=== PATIENT | female | born 1990 | race Hispanic/Latino ===

== ENCOUNTER 2018-07-18 10:35 | Emergency (ER) | payer SELFPAY ==
[2018-07-18 11:13] LABS: Basophils # (Auto) 0.1 K/mm3 (0.0-0.1); Basophils % (Auto) 0.6 % (0.0-1.8); Eosinophils # (Auto) 0.1 K/mm3 (0.0-0.4); Eosinophils % (Auto) 1.4 % (0.0-4.3); Hematocrit 48.6 % (30.3-42.9); Hemoglobin 16.7 gm/dl (10.1-14.3); Lymphocytes # (Auto) 1.6 K/mm3 (1.2-5.4); Lymphocytes % (Auto) 18.9 % (13.4-35.0); Mean Corpuscular HGB Conc 35 % (30-34); Mean Corpuscular Volume 94 fl (79-97); Monocytes # (Auto) 0.6 K/mm3 (0.0-0.8); Monocytes % (Auto) 6.6 % (0.0-7.3); Platelet Count 262 K/mm3 (140-440); Red Blood Count 5.17 M/mm3 (3.65-5.03); Red Cell Distribution Width 11.8 % (13.2-15.2)
[2018-07-18 11:33] LABS: BUN/Creatinine Ratio 15; Blood Urea Nitrogen 9 mg/dL (7-17); Calcium 10.7 mg/dL (8.4-10.2); Hemolysis Index 25
[2018-07-18] MEDS ORDERED: CATAPRES PO ONE (12:06)
[2018-07-18] MEDS ORDERED: ZOFRAN IV ONE (12:06)
[2018-07-18] MEDS ORDERED: BENTYL IM ONE (12:06)
[2018-07-18] MEDS ORDERED: PEPCID IV ONE (12:06)
--- NOTE | 2018-07-18 12:08 | Emergency Department Report ---
"ED General Adult HPI - General Chief complaint: Abdominal Pain Stated complaint: WITHDRAWS Time Seen by Provider: 07/18/18 11:55 Source: patient, RN notes reviewed Mode of arrival: Ambulatory Limitations: No Limitations - History of Present Illness Initial comments: This is a 28-year-old female. The patient is not known to this provider previously. She has a history of narcotic abuse. She reports snorting heroin on a daily basis. The patient presents to the emergency room with a complaint of narcotic withdrawal. She used heroin recreationally this morning, and then, simultaneously, took one of her friend's Suboxone tablets, 8 mg, at approxima tely 7:15 in the morning. Approximately 45 minutes to one hour later, patient developed abdominal cramping, nausea, vomiting, malaise, fatigue. She denies headache, neck pain, chest pain, positive abdominal pain, no urinary symptoms, not homicidal, not suicidal. Denies other coingestions. She is not having hallucinations. She is interested in detox therapy. -: Sudden Location: abdomen Radiation: non-radiation Quality: aching Consistency: constant Improves with: medication, rest Worsens with: movement - Related Data Previous Rx's Medication Instructions Recorded Last Taken Type Dicyclomine [Bentyl] 10 mg PO QID PRN #20 capsule 07/18/18 Unknown Rx Naloxone HCl [Narcan Nasal [place]] 4 mg NS Q1HR PRN #10 spray 07/18/18 Unknown Rx Ondansetron [Zofran Odt] 4 mg PO Q8HR PRN #20 tab.rapdis 07/18/18 Unknown Rx Promethazine [Phenergan SUPPOS] 50 mg [place] Q6H PRN #15 supp.rect 07/18/18 Unknown Rx cloNIDine [Catapres] 0.1 mg PO BID PRN #20 tablet 07/18/18 Unknown Rx Allergies Allergy/AdvReac Type Severity Reaction Status Date / Time No Known Allergies Allergy Verified 07/18/18 10:46 ED Review of Systems ROS: Stated complaint: WITHDRAWS Other details as noted in HPI Constitutional: malaise, weakness. denies: fever Eyes: denies: eye discharge ENT: denies: epistaxis Respiratory: denies: cough Cardiovascular: denies: chest pain Gastrointestinal: abdominal pain, nausea, vomiting Genitourinary: denies: dysuria Musculoskeletal: arthralgia, myalgia Skin: denies: lesions Neurological: weakness Psychiatric: anxiety. denies: homicidal thoughts, suicidal thoughts ED Past Medical Hx - Social History Smoking Status: Never Smoker Substance Use Type: Heroin - Medications Home Medications: Home Medications Medication Instructions Recorded Confirmed Last Taken Type Dicyclomine [Bentyl] 10 mg PO QID PRN #20 capsule 07/18/18 Unknown Rx Naloxone HCl [Narcan Nasal [place]] 4 mg NS Q1HR PRN #10 spray 07/18/18 Unknown Rx Ondansetron [Zofran Odt] 4 mg PO Q8HR PRN #20 tab.rapdis 07/18/18 Unknown Rx Promethazine [Phenergan SUPPOS] 50 mg [place] Q6H PRN #15 supp.rect 07/18/18 Unknown Rx cloNIDine [Catapres] 0.1 mg PO BID PRN #20 tablet 07/18/18 Unknown Rx ED Physical Exam - General Limitations: No Limitations General appearance: alert, anxious - Head Head exam: Present: atraumatic, normocephalic - Eye Eye exam: Present: normal appearance, EOMI. Absent: nystagmus - ENT ENT exam: Present: normal orophraynx, mucous membranes dry, normal external ear exam - Neck Neck exam: Present: normal inspection, full ROM. Absent: tenderness, meningismus - Respiratory Respiratory exam: Present: normal lung sounds bilaterally. Absent: respiratory distress - Cardiovascular Cardiovascular Exam: Present: regular rate, normal rhythm, normal heart sounds. Absent: bradycardia, tachycardia, irregular rhythm, systolic murmur, diastolic murmur, rubs, gallop - GI/Abdominal GI/Abdominal exam: Present: soft, tenderness (there is mild abdominal tenderness, with no rebound, guarding or peritoneal signs.). Absent: distended, guarding, rebound, rigid, pulsatile mass - Extremities Exam Extremities exam: Present: normal inspection, full ROM, other (2+ pulses noted in the bilateral upper, lower extremities. Compartments soft. No long bony tenderness. The pelvis is stable.). Absent: pedal edema, joint swelling, calf tenderness - Back Exam Back exam: Present: normal inspection, full ROM. Absent: tenderness, CVA tenderness (R), CVA tenderness (L), paraspinal tenderness, vertebral tenderness - Neurological Exam Neurological exam: Present: alert, oriented X3, other (Extraocular movements intact. Tongue midline. No facial droop. Facial sensation intact to light touch in the V1, V2, V3 distribution bilaterally. 5 and 5 strength in 4 extremities.. Sensation is intact to light touch in 4 extremities.). Absent: motor sensory deficit - Psychiatric Psychiatric exam: Present: anxious - Skin Skin exam: Present: warm, dry, intact, normal color. Absent: rash ED Course Vital Signs 07/18/18 07/18/18 07/18/18 10:44 12:16 12:18 Temperature 99.0 F 98.7 F Pulse Rate 99 H 82 Respiratory 24 12 Rate Blood Pressure 153/128 Blood Pressure 113/71 [Left] O2 Sat by Pulse 100 99 99 Oximetry 07/18/18 07/18/18 13:16 14:13 Temperature Pulse Rate 71 Respiratory 12 14 Rate Blood Pressure Blood Pressure 107/70 103/70 [Left] O2 Sat by Pulse 99 99 Oximetry - Reevaluation(s) Reevaluation #1: 07/18/18 12:59 Differential diagnosis, including but not limited to: Narcotic withdrawal, narcotic dependence, requesting for narcotic detox Assessment and plan: A 28-year-old female with simultaneous ingestion of opioids and opioids agonist, antagonist, and the form of Suboxone. Ingestion took place approximately 6 hours ago. The patient does not meet 1013 criteria. She is afebrile with reassuring vital signs. Screening laboratory studies unremarkable. We will treat her symptoms. She is interested in detox therapy. Psychiatric consultation has been obtained. Reevaluation #2: 07/18/18 13:05 Discussed with [facility] at the [facility]. Discuss patient's laboratory studies, EKG, history, physical and presentation. She agrees with supportive care, and indicates no additional medical monitoring is necessary at this point in time. Psychiatric evaluation is pending. Patient does not meet criteria for medical hospitalization. She does not meet criteria for 1013. She does not appear to have a medically emergent condition at this time. No active vomiting, apparently tolerating oral feeds. ED Medical Decision Making - Lab Data Result diagrams: 07/18/18 10:52 07/18/18 10:52 Vital Signs 07/18/18 07/18/18 07/18/18 10:44 12:16 12:18 Temperature 99.0 F 98.7 F Pulse Rate 99 H 82 Respiratory 24 12 Rate Blood Pressure 153/128 Blood Pressure 113/71 [Left] O2 Sat by Pulse 100 99 99 Oximetry Lab Results 07/18/18 07/18/18 07/18/18 Range/Units 10:52 10:52 10:52 WBC (4.5-11.0) K/mm3 RBC (3.65-5.03) M/mm3 Hgb (10.1-14.3) gm/dl Hct (30.3-42.9) % MCV (79-97) fl MCH (28-32) pg MCHC (30-34) % RDW (13.2-15.2) % Plt Count (140-440) K/mm3 Lymph % (Auto) (13.4-35.0) % Weld % (Auto) (0.0-7.3) % Eos % (Auto) (0.0-4.3) % Baso % (Auto) (0.0-1.8) % Lymph # (1.2-5.4) K/mm3 Weld # (0.0-0.8) K/mm3 Eos # (0.0-0.4) K/mm3 Baso # (0.0-0.1) K/mm3 Seg Neutrophils % (40.0-70.0) % Seg Neutrophils # (1.8-7.7) K/mm3 Sodium 141 (137-145) mmol/L Potassium 3.9 (3.6-5.0) mmol/L Chloride 97.0 L (98-107) mmol/L Carbon Dioxide 22 (22-30) mmol/L Anion Gap 26 mmol/L BUN 9 (7-17) mg/dL Creatinine 0.6 L (0.7-1.2) mg/dL Estimated GFR > 60 ml/min BUN/Creatinine Ratio 15 % Glucose 142 H (65-100) mg/dL Calcium 10.7 H (8.4-10.2) mg/dL HCG, Qual (Negative) Salicylates < 0.3 L (2.8-20.0) mg/dL Acetaminophen < 5.0 L (10.0-30.0) ug/mL Plasma/Serum Alcohol (0-0.07) % 07/18/18 07/18/18 07/18/18 Range/Units 10:52 10:52 10:52 WBC 8.7 (4.5-11.0) K/mm3 RBC 5.17 H (3.65-5.03) M/mm3 Hgb 16.7 H (10.1-14.3) gm/dl Hct 48.6 H (30.3-42.9) % MCV 94 (79-97) fl MCH 32 (28-32) pg MCHC 35 H (30-34) % RDW 11.8 L (13.2-15.2) % Plt Count 262 (140-440) K/mm3 Lymph % (Auto) 18.9 (13.4-35.0) % Weld % (Auto) 6.6 (0.0-7.3) % Eos % (Auto) 1.4 (0.0-4.3) % Baso % (Auto) 0.6 (0.0-1.8) % Lymph # 1.6 (1.2-5.4) K/mm3 Weld # 0.6 (0.0-0.8) K/mm3 Eos # 0.1 (0.0-0.4) K/mm3 Baso # 0.1 (0.0-0.1) K/mm3 Seg Neutrophils % 72.5 H (40.0-70.0) % Seg Neutrophils # 6.3 (1.8-7.7) K/mm3 Sodium (137-145) mmol/L Potassium (3.6-5.0) mmol/L Chloride (98-107) mmol/L Carbon Dioxide (22-30) mmol/L Anion Gap mmol/L BUN (7-17) mg/dL Creatinine (0.7-1.2) mg/dL Estimated GFR ml/min BUN/Creatinine Ratio % Glucose (65-100) mg/dL Calcium (8.4-10.2) mg/dL HCG, Qual Negative (Negative) Salicylates (2.8-20.0) mg/dL Acetaminophen (10.0-30.0) ug/mL Plasma/Serum Alcohol < 0.01 (0-0.07) % - EKG Data -: EKG Interpreted by Ms EKG shows normal: sinus rhythm Rate: normal - EKG Data 07/18/18 13:06 Sinus rhythm, 62 bpm, normal axis, normal intervals, not having chest pain, this EKG is not consistent with ST elevation myocardial infarction. There is no prior for comparison. Critical care attestation.: If time is entered above; I have spent that time in minutes in the direct care of this critically ill patient, excluding procedure time. ED Disposition Clinical Impression: Narcotic dependence Disposition: DC-01 TO HOME OR SELFCARE Is pt being admited?: No Does the pt Need Aspirin: No Condition: Stable Additional Instructions: Please attempt to discontinue heroin consumption. Long-term consumption of heroin may result in addiction, disability, , paralysis, loss of quality of life. Please do not combine heroin, with other drugs or prescription medications, as interactions may result in , disability, paralysis, loss of quality of life. If patient is interested in medical insurance clerk therapy for opioid cessation, she may follow up with the primary care doctor, mental health Department, or the [facility]. . Community based outpatient services are located at [address] [place] [address]. Our Crisis Service Center and Inpatient services are located in the [facility] at [address] [place] [address]. [address] [place] [address] | | Wednesday - Wednesday; 8 a.m. 4:30 p.m. Take nausea medication as directed, clonidine medication as needed for symptoms of nausea, vomiting, withdrawal, Phenergan suppository as needed for intractable nausea and vomiting, not relieved by Zofran, and use the Narcan medication as directed for symptoms of opioid overdose, which include respiratory depression, sleepiness, somnolence. Please return to the emergency room right away with new, worsening or different symptoms, or symptoms not present on the initial emergency room evaluation. Prescriptions: Dicyclomine [Bentyl] 10 mg PO QID PRN #20 capsule PRN Reason: Pain cloNIDine [Catapres] 0.1 mg PO BID PRN #20 tablet PRN Reason: Agitation Naloxone HCl [Narcan Nasal [place]] 4 mg NS Q1HR PRN #10 spray PRN Reason: Opioid Reversal Promethazine [Phenergan SUPPOS] 50 mg [place] Q6H PRN #15 supp.rect PRN Reason: Nausea Ondansetron [Zofran Odt] 4 mg PO Q8HR PRN #20 tab.rapdis PRN Reason: Nausea Referrals: [facility] [Provider Group] - 3-[address] [facility] [Outside] - 3-5 Days"
[2018-07-18] MEDS ORDERED: D5/0.45NS 1,000 ML IV SCH (13:00)
[2018-07-18 14:14] VITALS: BP 103/70
== END 2018-07-18 14:13 | disposition home or self-care (01) ==
LOC: ED 10:35
DX: F11.20 Opioid dependence, uncomplicated (principal)
CPT/HCPCS: 36415; 80048; 82550; 84703; 85025; 93005; 93010; 96372; 96374; 96375; 99284; G0480; J0500; J2405; 80320

== ENCOUNTER 2018-08-16 12:44 | Emergency (ER) | payer OTHER ==
[2018-08-16 12:55] VITALS: BP 145/79
--- NOTE | 2018-08-16 12:56 | Emergency Department Report ---
Blank Doc - Documentation Documentation: 28 yo female presents with redness and blistering rash to suprapubic region x 1 week and a half states its getting worse ACC eval
--- NOTE | 2018-08-16 13:24 | Emergency Department Report ---
- General Chief complaint: Skin/Abscess/Foreign Body Stated complaint: INSECT BITES/OPEN SORES Time Seen by Provider: 08/16/18 12:53 Source: patient Mode of arrival: Ambulatory Limitations: No Limitations - History of Present Illness Initial comments: Patient is a 28-year-old female who is presenting with sores on her body. Patient states that her boyfriend had one bumped it turned into a open sore several days ago and now she has. Patient's boyfriend had one however her seemed to be spreading. Patient states that they start as small pustules and in (2 pea-sized sores with erythematous border. Patient states these are painful but also itch. Patient denies any fever nausea vomiting diarrhea. Patient states the majority of these are located in the pubic region but also on her bilateral upper and lower extremities. They do spare her face and back. - Related Data Previous Rx's Medication Instructions Recorded Last Taken Type Dicyclomine [Bentyl] 10 mg PO QID PRN #20 capsule 07/18/18 Unknown Rx Naloxone HCl [Narcan Nasal [place]] 4 mg NS Q1HR PRN #10 spray 07/18/18 Unknown Rx Ondansetron [Zofran Odt] 4 mg PO Q8HR PRN #20 tab.rapdis 07/18/18 Unknown Rx Promethazine [Phenergan SUPPOS] 50 mg [place] Q6H PRN #15 supp.rect 07/18/18 Unknown Rx cloNIDine [Catapres] 0.1 mg PO BID PRN #20 tablet 07/18/18 Unknown Rx DOXYCYCLINE Hyclate [Vibramycin 100 mg PO Q12HR #14 capsule 08/16/18 Unknown Rx CAP] Ibuprofen [Motrin 600 MG tab] 600 mg PO Q8H PRN #20 tablet 08/16/18 Unknown Rx traMADol [Ultram] 50 mg PO Q6HR PRN #12 tablet 08/16/18 Unknown Rx Allergies Allergy/AdvReac Type Severity Reaction Status Date / Time No Known Allergies Allergy Verified 07/18/18 10:46 Abscess Boil HPI - HPI Chief Complaint: Skin/Abscess/Foreign Body Stated Complaint: INSECT BITES/OPEN SORES Time Seen by Provider: 08/16/18 12:53 Home Medications: Previous Rx's Medication Instructions Recorded Last Taken Type Dicyclomine [Bentyl] 10 mg PO QID PRN #20 capsule 07/18/18 Unknown Rx Naloxone HCl [Narcan Nasal [place]] 4 mg NS Q1HR PRN #10 spray 07/18/18 Unknown Rx Ondansetron [Zofran Odt] 4 mg PO Q8HR PRN #20 tab.rapdis 07/18/18 Unknown Rx Promethazine [Phenergan SUPPOS] 50 mg [place] Q6H PRN #15 supp.rect 07/18/18 Unknown Rx cloNIDine [Catapres] 0.1 mg PO BID PRN #20 tablet 07/18/18 Unknown Rx DOXYCYCLINE Hyclate [Vibramycin 100 mg PO Q12HR #14 capsule 08/16/18 Unknown Rx CAP] Ibuprofen [Motrin 600 MG tab] 600 mg PO Q8H PRN #20 tablet 08/16/18 Unknown Rx traMADol [Ultram] 50 mg PO Q6HR PRN #12 tablet 08/16/18 Unknown Rx Allergies/Adverse Reactions: Allergies Allergy/AdvReac Type Severity Reaction Status Date / Time No Known Allergies Allergy Verified 07/18/18 10:46 ED Review of Systems ROS: Stated complaint: INSECT BITES/OPEN SORES Other details as noted in HPI Comment: All other systems reviewed and negative ED Past Medical Hx - Past Medical History Previous Medical History?: No - Surgical History Past Surgical History?: Yes Hx Appendectomy: Yes Additional Surgical History: L arm surgery for fx - Social History Smoking Status: Current Every Day Smoker Substance Use Type: None - Medications Home Medications: Home Medications Medication Instructions Recorded Confirmed Last Taken Type Dicyclomine [Bentyl] 10 mg PO QID PRN #20 capsule 07/18/18 Unknown Rx Naloxone HCl [Narcan Nasal [place]] 4 mg NS Q1HR PRN #10 spray 07/18/18 Unknown Rx Ondansetron [Zofran Odt] 4 mg PO Q8HR PRN #20 tab.rapdis 07/18/18 Unknown Rx Promethazine [Phenergan SUPPOS] 50 mg [place] Q6H PRN #15 supp.rect 07/18/18 Unknown Rx cloNIDine [Catapres] 0.1 mg PO BID PRN #20 tablet 07/18/18 Unknown Rx DOXYCYCLINE Hyclate [Vibramycin 100 mg PO Q12HR #14 capsule 08/16/18 Unknown Rx CAP] Ibuprofen [Motrin 600 MG tab] 600 mg PO Q8H PRN #20 tablet 08/16/18 Unknown Rx traMADol [Ultram] 50 mg PO Q6HR PRN #12 tablet 08/16/18 Unknown Rx ED Physical Exam - General Limitations: No Limitations General appearance: alert, in no apparent distress - Head Head exam: Present: atraumatic, normocephalic - Eye Eye exam: Present: normal appearance, PERRL, EOMI - Neck Neck exam: Present: normal inspection - Respiratory Respiratory exam: Absent: respiratory distress - Expanded Skin Exam Expanded 1 - Multiple discrete lesions on the skin anteriorly that vary in size but at the greatest diameter are not greater than 1/2 cm which are shallow erythematous ulcerated areas with a erythematous border. Several of them have a purulent surface. 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 Patient be started on antibiotics and given Bactroban nasal ointment. Critical care attestation.: If time is entered above; I have spent that time in minutes in the direct care of this critically ill patient, excluding procedure time. ED Disposition Clinical Impression: Skin lesions Cellulitis Qualifiers: Site of cellulitis: unspecified site Qualified Code(s): L03.90 - Cellulitis, unspecified Disposition: DC- TO HOME OR SELFCARE Is pt being admited?: No Does the pt Need Aspirin: No Condition: Stable Instructions: Methicillin Resistant Staphylococcus Aureus (ED) Referrals: SANDRINE PEÑA MD [Primary Care Provider] - 3-5 Days Time of Disposition: 13:29
== END 2018-08-16 13:48 | disposition home or self-care (01) ==
LOC: ED 12:44
DX: L98.9 Disorder of the skin and subcutaneous tissue, unspecified (principal); L03.90 Cellulitis, unspecified; L29.9 Pruritus, unspecified; F17.200 Nicotine dependence, unspecified, uncomplicated; Z79.899 Other long term (current) drug therapy; Z90.89 Acquired absence of other organs

== ENCOUNTER 2018-10-09 23:26 | Emergency (ER) | payer SELFPAY ==
[2018-10-09 23:32] VITALS: BP 118/93
== END 2018-10-10 01:27 | disposition left against medical advice (07) ==
LOC: ED 23:26
DX: K08.89 Other specified disorders of teeth and supporting structures (principal); Z53.21 Procedure and treatment not carried out due to patient leaving prior to being seen by health care provider

== ENCOUNTER 2019-07-03 11:06 | Emergency (ER) | payer SELFPAY ==
[2019-07-03 11:31] VITALS: BP 117/69
[2019-07-03 11:49] LABS: Basophils # (Auto) 0.1 K/mm3 (0.0-0.1); Basophils % (Auto) 0.8 % (0.0-1.8); Eosinophils # (Auto) 0.5 K/mm3 (0.0-0.4); Eosinophils % (Auto) 4.1 % (0.0-4.3); Hemoglobin 14.4 gm/dl (10.1-14.3); Lymphocytes # (Auto) 1.5 K/mm3 (1.2-5.4); Lymphocytes % (Auto) 12.7 % (13.4-35.0); Monocytes # (Auto) 0.7 K/mm3 (0.0-0.8); Monocytes % (Auto) 6.2 % (0.0-7.3)
[2019-07-03 12:05] LABS: Mean Corpuscular HGB Conc 34 % (30-34); Mean Corpuscular Volume 93 fl (79-97); Platelet Count 373 K/mm3 (140-440); Red Blood Count 4.64 M/mm3 (3.65-5.03); Red Cell Distribution Width 13.7 % (13.2-15.2)
[2019-07-03 12:12] LABS: Albumin 4.5 g/dL (3.9-5); BUN/Creatinine Ratio 9; Blood Urea Nitrogen 6 mg/dL (7-17); Hemolysis Index 94
[2019-07-03] MEDS ORDERED: ONDANSETRON 4 MG/2 ML INJ IV ONE (12:12)
[2019-07-03] MEDS ORDERED: SODIUM CHLORIDE 0.9% 1000 ML 1,000 ML IV ONE (12:12)
[2019-07-03] MEDS ORDERED: KETOROLAC 30 MG/1 ML INJ IV ONE (12:12)
[2019-07-03 12:27] LABS: Alanine Aminotransferase 8 units/L (7-56)
[2019-07-03 12:43] LABS: Bilirubin,Urine NEG (Negative); Blood,Urine NEG (Negative); Color,Urine Yellow (Yellow); Mucus,Urine 3+ /HPF; Protein,Urine <15 mg/dL mg/dL (Negative)
[2019-07-03 12:45] LABS: Amphetamine Screen,Urine PRESUMPTIVE NEGATIVE; Benzodiazepines Screen,Urine PRESUMPTIVE NEGATIVE; Methadone Screen,Urine PRESUMPTIVE NEGATIVE
[2019-07-03 12:58] LABS: Cannabinoid Screen,Urine PRESUMPTIVE POSITIVE; Cocaine Screen,Urine PRESUMPTIVE POSITIVE; Opiate Screen,Urine PRESUMPTIVE POSITIVE
--- NOTE | 2019-07-03 13:26 | Cat Scan Report ---
CT ABDOMEN AND PELVIS WITH CONTRAST INDICATION / CLINICAL INFORMATION: 5 days left lower quadrant pain. TECHNIQUE: Axial CT images were obtained through the abdomen and pelvis after 100 mL Omnipaque [address] scans at this location are performed using CT dose reduction for ALARA by means of automated exposure control. COMPARISON: None available. FINDINGS: LOWER CHEST: No significant abnormality. LIVER: No significant abnormality. BILIARY SYSTEM: No significant abnormality. PANCREAS: No significant abnormality. SPLEEN: No significant abnormality. ADRENALS: No significant abnormality. KIDNEYS and URETERS: No significant abnormality. STOMACH / BOWEL: No definite acutely inflamed or dilated segment. Colon is unremarkable. The appendix is not identified, but there is no evidence of an acute inflammatory process in the right lower quad rant. PERITONEUM: Small volume of free fluid in the deep recesses of the pelvis. No free air. Small tubular collection of fluid in the left adnexa on series 2 image 132 with a thin, smooth, enhancing rim is i ndeterminate; this could represent a bowel segment or small fluid collection. It measures 5 cm in gre atest dimension. LYMPH NODES: No enlarged nodes by CT size criteria. VASCULAR STRUCTURES: No significant abnormality. URINARY BLADDER: No significant abnormality. REPRODUCTIVE ORGANS: An IUD appears well-positioned centrally in the uterus. ADDITIONAL FINDINGS: None. SKELETAL SYSTEM: No significant abnormality. IMPRESSION: 1. Irregularly-shaped left adnexal cystic structure with thin, enhancing rim may represent a short s egment of small bowel, hydrosalpinx or less likely an abscess. Further evaluation with pelvic ultraso und is recommended. Also correlate with history/symptoms of pelvic inflammatory disease. 2. Small volume of free fluid in the pelvis. Signer Name: Cj Gunter MD Signed: 07/03/2019 1:22 PM Workstation Name: [id number]
--- NOTE | 2019-07-03 16:24 | Ultrasound Report ---
ULTRASOUND PELVIS INDICATION / CLINICAL INFORMATION: left sided abd pain, abnormal CT. TECHNIQUE: Transabdominal and Transvaginal. Duplex Color Doppler used: Yes. COMPARISON: Same-day CT scan FINDINGS: UTERUS: Present. - Appearance (if present): Appropriately positioned IUD noted. No significant abnormality of the uter us. - Size in cm (if present): 9.5 x 3.1 x 5. - Endometrial Complex (if present): No significant abnormality.. Thickness in cm (if measured) = 0.6 - Mass lesions: None. - Additional findings: None. RIGHT ADNEXA: No significant ovarian cyst or mass. Normal color Doppler blood flow. LEFT ADNEXA: Relatively enlarged ovary containing a circumscribed but irregularly-shaped lesion of in termediate echogenicity that has average dimension 2.4 cm and no internal blood flow. Separate thick- walled cystic structure measuring about 2.1 cm in diameter has an internal anechoic area. Normal colo r Doppler blood flow. The ovary measures 6 x 3.8 x 4.6 cm overall URINARY BLADDER: No significant abnormality. FREE FLUID: Small volume of simple free fluid is again seen. ADDITIONAL FINDINGS: No definite correlate for the fluid containing structure seen by CT. IMPRESSION: 1. Enlarged left ovary with a couple of complex cystic/solid lesions measures about 6 cm in greatest dimension. No abnormal pelvic fluid collection is identified. Follow-up ultrasound in 6-12 weeks coul d be performed to confirm resolution of these lesions. 2. Small volume of free pelvic fluid may be physiologic. Signer Name: Cj Gunter MD Signed: 07/03/2019 4:20 PM Workstation Name: [id number]
--- NOTE | 2019-07-03 16:35 | Emergency Department Report ---
ED Abdominal Pain HPI - General Chief Complaint: Abdominal Pain Stated Complaint: ABD PAIN Time Seen by Provider: 07/03/19 12:03 Source: patient Mode of arrival: Ambulatory Limitations: No Limitations - History of Present Illness Initial Comments: Patient is a 29-year-old female presents emergency room with complaints of left lower abdominal pain that began 3 days ago. She denies any nausea, vomiting, diarrhea, urinary symptoms. She states that her boyfriend was having dysuria a few days ago. She denies any vaginal discharge or irritation. She denies any past medical history or allergies to medications. She states her last menstrual cycle was the middle of April. She states that she has an IUD in place and states she believes the expiration date was in May but has not yet had it removed. She states she has been having normal bowel movements. She is a smoker and states that she also uses heroin. She states that she used heroin this morning. She denies any SI or HI. Severity scale (0 -10): 1 - Related Data Previous Rx's Medication Instructions Recorded Last Taken Type Dicyclomine [Bentyl] 10 mg PO QID PRN #20 capsule 07/18/18 Unknown Rx Naloxone HCl [Narcan Nasal [place]] 4 mg NS Q1HR PRN #10 spray 07/18/18 Unknown Rx Ondansetron [Zofran Odt] 4 mg PO Q8HR PRN #20 tab.rapdis 07/18/18 Unknown Rx Promethazine [Phenergan SUPPOS] 50 mg HI Q6H PRN #15 supp.rect 07/18/18 Unknown Rx cloNIDine [Catapres] 0.1 mg PO BID PRN #20 tablet 07/18/18 Unknown Rx DOXYCYCLINE Hyclate [Vibramycin 100 mg PO Q12HR #14 capsule 08/16/18 Unknown Rx CAP] Ibuprofen [Motrin 600 MG tab] 600 mg PO Q8H PRN #20 tablet 08/16/18 Unknown Rx traMADoL [Ultram] 50 mg PO Q6HR PRN #12 tablet 08/16/18 Unknown Rx Azithromycin 1,000 mg PO ONCE 1 Days #2 tablet 07/03/19 Unknown Rx Ketorolac [Toradol] 10 mg PO Q6H PRN #10 tablet 07/03/19 Unknown Rx metroNIDAZOLE [Flagyl] 500 mg PO BID 7 Days #14 tab 07/03/19 Unknown Rx Allergies Allergy/AdvReac Type Severity Reaction Status Date / Time No Known Allergies Allergy Verified 07/18/18 10:46 ED Review of Systems ROS: Stated complaint: ABD PAIN Other details as noted in HPI Comment: All other systems reviewed and negative ED Past Medical Hx - Past Medical History Previous Medical History?: No - Surgical History Past Surgical History?: Yes Hx Appendectomy: Yes Additional Surgical History: L wrist surgery for fracture - Social History Smoking Status: Never Smoker Substance Use Type: Heroin - Medications Home Medications: Home Medications Medication Instructions Recorded Confirmed Last Taken Type Dicyclomine [Bentyl] 10 mg PO QID PRN #20 capsule 07/18/18 Unknown Rx Naloxone HCl [Narcan Nasal [place]] 4 mg NS Q1HR PRN #10 spray 07/18/18 Unknown Rx Ondansetron [Zofran Odt] 4 mg PO Q8HR PRN #20 tab.rapdis 07/18/18 Unknown Rx Promethazine [Phenergan SUPPOS] 50 mg HI Q6H PRN #15 supp.rect 07/18/18 Unknown Rx cloNIDine [Catapres] 0.1 mg PO BID PRN #20 tablet 07/18/18 Unknown Rx DOXYCYCLINE Hyclate [Vibramycin 100 mg PO Q12HR #14 capsule 08/16/18 Unknown Rx CAP] Ibuprofen [Motrin 600 MG tab] 600 mg PO Q8H PRN #20 tablet 08/16/18 Unknown Rx traMADoL [Ultram] 50 mg PO Q6HR PRN #12 tablet 08/16/18 Unknown Rx Azithromycin 1,000 mg PO ONCE 1 Days #2 tablet 07/03/19 Unknown Rx Ketorolac [Toradol] 10 mg PO Q6H PRN #10 tablet 07/03/19 Unknown Rx metroNIDAZOLE [Flagyl] 500 mg PO BID 7 Days #14 tab 07/03/19 Unknown Rx ED Physical Exam - General Limitations: No Limitations General appearance: alert, in no apparent distress - Head Head exam: Present: atraumatic, normocephalic - Eye Eye exam: Present: normal appearance - ENT ENT exam: Present: mucous membranes moist - Respiratory Respiratory exam: Present: normal lung sounds bilaterally. Absent: respiratory distress, wheezes, rales, rhonchi, stridor, chest wall tenderness, accessory muscle use, decreased breath sounds, prolonged expiratory - Cardiovascular Cardiovascular Exam: Present: regular rate, normal rhythm, normal heart sounds. Absent: systolic murmur, diastolic murmur, rubs, gallop - GI/Abdominal GI/Abdominal exam: Present: soft, tenderness (LLQ, left suprapubic), normal bowel sounds. Absent: distended, guarding, rebound, rigid - Neurological Exam Neurological exam: Present: alert, oriented X3 - Psychiatric Psychiatric exam: Present: normal affect, normal mood - Skin Skin exam: Present: warm, dry, intact ED Course Vital Signs 07/03/19 11:25 Temperature 99.4 F Pulse Rate 101 H Respiratory 20 Rate Blood Pressure 117/69 O2 Sat by Pulse 99 Oximetry - Consultations Consultation #1: 07/03/19 16:[address] Erma Hathaway, ASTRONAUTICAL ENGINEER regarding pt presentation and results who states that if patient's pain is under control she can follow-up in their office on Wednesday (07/05/2019) and she will see the pt ED Medical Decision Making - Lab Data Result diagrams: 07/03/19 11:36 07/03/19 11:36 Lab Results 07/03/19 07/03/19 07/03/19 Range/Units 11:36 11:36 11:36 WBC 11.8 H (4.5-11.0) K/mm3 RBC 4.64 (3.65-5.03) M/mm3 Hgb 14.4 H (10.1-14.3) gm/dl Hct 43.0 H (30.3-42.9) % MCV 93 (79-97) fl MCH 31 (28-32) pg MCHC 34 (30-34) % RDW 13.7 (13.2-15.2) % Plt Count 373 (140-440) K/mm3 Lymph % (Auto) 12.7 L (13.4-35.0) % [place] % (Auto) 6.2 (0.0-7.3) % Eos % (Auto) 4.1 (0.0-4.3) % Baso % (Auto) 0.8 (0.0-1.8) % Lymph # 1.5 (1.2-5.4) K/mm3 [place] # 0.7 (0.0-0.8) K/mm3 Eos # 0.5 H (0.0-0.4) K/mm3 Baso # 0.1 (0.0-0.1) K/mm3 Seg Neutrophils % 76.2 H (40.0-70.0) % Seg Neutrophils # 9.0 H (1.8-7.7) K/mm3 Sodium 140 (137-145) mmol/L Potassium 4.8 (3.6-5.0) mmol/L Chloride 97.7 L (98-107) mmol/L Carbon Dioxide 28 (22-30) mmol/L Anion Gap 19 mmol/L BUN 6 L (7-17) mg/dL Creatinine 0.7 (0.7-1.2) mg/dL Estimated GFR > 60 ml/min BUN/Creatinine Ratio 9 % Glucose 106 H (65-100) mg/dL Calcium 10.0 (8.4-10.2) mg/dL Total Bilirubin 0.30 (0.1-1.2) mg/dL AST 16 (5-40) units/L ALT 8 (7-56) units/L Alkaline Phosphatase 105 (35-129) units/L Total Protein 8.5 H (6.3-8.2) g/dL Albumin 4.5 (3.9-5) g/dL Albumin/Globulin Ratio 1.1 % HCG, Qual Negative (Negative) Urine Color (Yellow) Urine Turbidity (Clear) Urine pH (5.0-7.0) Ur Specific [place] (1.003-1.030) Urine Protein (Negative) mg/dL Urine Glucose (UA) (Negative) mg/dL Urine Ketones (Negative) mg/dL Urine Blood (Negative) Urine Nitrite (Negative) Urine Bilirubin (Negative) Urine Urobilinogen (<2.0) mg/dL Ur Leukocyte Esterase (Negative) Urine WBC (Auto) (0.0-6.0) /HPF Urine RBC (Auto) (0.0-6.0) /HPF U Epithel Cells (Auto) (0-13.0) /HPF Urine Mucus /HPF Urine Opiates Screen Urine Methadone Screen Ur Barbiturates Screen Ur Phencyclidine Scrn Ur Amphetamines Screen U Benzodiazepines Scrn Urine Cocaine Screen U Marijuana (THC) Screen Drugs of Abuse Note 07/03/19 07/03/19 Range/Units 11:43 11:43 WBC (4.5-11.0) K/mm3 RBC (3.65-5.03) M/mm3 Hgb (10.1-14.3) gm/dl Hct (30.3-42.9) % MCV (79-97) fl MCH (28-32) pg MCHC (30-34) % RDW (13.2-15.2) % Plt Count (140-440) K/mm3 Lymph % (Auto) (13.4-35.0) % [place] % (Auto) (0.0-7.3) % Eos % (Auto) (0.0-4.3) % Baso % (Auto) (0.0-1.8) % Lymph # (1.2-5.4) K/mm3 [place] # (0.0-0.8) K/mm3 Eos # (0.0-0.4) K/mm3 Baso # (0.0-0.1) K/mm3 Seg Neutrophils % (40.0-70.0) % Seg Neutrophils # (1.8-7.7) K/mm3 Sodium (137-145) mmol/L Potassium (3.6-5.0) mmol/L Chloride (98-107) mmol/L Carbon Dioxide (22-30) mmol/L Anion Gap mmol/L BUN (7-17) mg/dL Creatinine (0.7-1.2) mg/dL Estimated GFR ml/min BUN/Creatinine Ratio % Glucose (65-100) mg/dL Calcium (8.4-10.2) mg/dL Total Bilirubin (0.1-1.2) mg/dL AST (5-40) units/L ALT (7-56) units/L Alkaline Phosphatase (35-129) units/L Total Protein (6.3-8.2) g/dL Albumin (3.9-5) g/dL Albumin/Globulin Ratio % HCG, Qual (Negative) Urine Color Yellow (Yellow) Urine Turbidity Clear (Clear) Urine pH 6.0 (5.0-7.0) Ur Specific [place] 1.021 (1.003-1.030) Urine Protein <15 mg/dl (Negative) mg/dL Urine Glucose (UA) Neg (Negative) mg/dL Urine Ketones Neg (Negative) mg/dL Urine Blood Neg (Negative) Urine Nitrite Neg (Negative) Urine Bilirubin Neg (Negative) Urine Urobilinogen 4.0 (<2.0) mg/dL Ur Leukocyte Esterase Tr (Negative) Urine WBC (Auto) 3.0 (0.0-6.0) /HPF Urine RBC (Auto) 3.0 (0.0-6.0) /HPF U Epithel Cells (Auto) 1.0 (0-13.0) /HPF Urine Mucus 3+ /HPF Urine Opiates Screen Presumptive positive Urine Methadone Screen Presumptive negative Ur Barbiturates Screen Presumptive negative Ur Phencyclidine Scrn Presumptive negative Ur Amphetamines Screen Presumptive negative U Benzodiazepines Scrn Presumptive negative Urine Cocaine Screen Presumptive positive U Marijuana (THC) Screen Presumptive positive Drugs of Abuse Note Disclamer - Radiology Data Radiology results: report reviewed CT ABDOMEN AND PELVIS WITH CONTRAST INDICATION / CLINICAL INFORMATION: 5 days left lower quadrant pain. TECHNIQUE: Axial CT images were obtained through the abdomen and pelvis after 100 mL Omnipaque [address] scans at this location are performed using CT dose reduction for ALARA by means of automated exposure control. COMPARISON: None available. FINDINGS: LOWER CHEST: No significant abnormality. LIVER: No significant abnormality. BILIARY SYSTEM: No significant abnormality. PANCREAS: No significant abnormality. SPLEEN: No significant abnormality. ADRENALS: No significant abnormality. KIDNEYS and URETERS: No significant abnormality. STOMACH / BOWEL: No definite acutely inflamed or dilated segment. Colon is unremarkable. The appendix is not identified, but there is no evidence of an acute inflammatory process in the right lower quadrant. PERITONEUM: Small volume of free fluid in the deep recesses of the pelvis. No free air. Small tubular collection of fluid in the left adnexa on series 2 image 132 with a thin, smooth, enhancing rim is indeterminate; this could represent a bowel segment or small fluid collection. It measures 5 cm in greatest dimension. LYMPH NODES: No enlarged nodes by CT size criteria. VASCULAR STRUCTURES: No significant abnormality. URINARY BLADDER: No significant abnormality. REPRODUCTIVE ORGANS: An IUD appears well-positioned centrally in the uterus. ADDITIONAL FINDINGS: None. SKELETAL SYSTEM: No significant abnormality. IMPRESSION: 1. Irregularly-shaped left adnexal cystic structure with thin, enhancing rim may represent a short segment of small bowel, hydrosalpinx or less likely an abscess. Further evaluation with pelvic ultrasound is recommended. Also correlate with history/symptoms of pelvic inflammatory disease. 2. Small volume of free fluid in the pelvis. Signer Name: Cj Gunter MD Signed: 07/03/2019 1:22 PM Workstation Name: [id number] Transcribed By: KELL Dictated By: Cj Gunter MD Electronically Authenticated By: Cj Gunter MD Signed Date/Time: 07/03/19 1322 DD/ 1311 TD/TT: ULTRASOUND PELVIS INDICATION / CLINICAL INFORMATION: left sided abd pain, abnormal CT. TECHNIQUE: Transabdominal and Transvaginal. Duplex Color Doppler used: Yes. COMPARISON: Same-day CT scan FINDINGS: UTERUS: Present. - Appearance (if present): Appropriately positioned IUD noted. No significant abnormality of the uterus. - Size in cm (if present): 9.5 x 3.1 x 5. - Endometrial Complex (if present): No significant abnormality.. Thickness in cm (if measured) = 0.6 - Mass lesions: None. - Additional findings: None. RIGHT ADNEXA: No significant ovarian cyst or mass. Normal color Doppler blood flow. LEFT ADNEXA: Relatively enlarged ovary containing a circumscribed but irregularly-shaped lesion of intermediate echogenicity that has average dimension 2.4 cm and no internal blood flow. Separate thick-walled cystic structure measuring about 2.1 cm in diameter has an internal anechoic area. Normal color Doppler blood flow. The ovary measures 6 x 3.8 x 4.6 cm overall URINARY BLADDER: No significant abnormality. FREE FLUID: Small volume of simple free fluid is again seen. ADDITIONAL FINDINGS: No definite correlate for the fluid containing structure seen by CT. IMPRESSION: 1. Enlarged left ovary with a couple of complex cystic/solid lesions measures about 6 cm in greatest dimension. No abnormal pelvic fluid collection is identified. Follow- up ultrasound in 6-12 weeks could be performed to confirm resolution of these lesions. 2. Small volume of free pelvic fluid may be physiologic. Signer Name: Cj Gunter MD Signed: 07/03/2019 4:20 PM Workstation Name: [id number] Transcribed By: KELL Dictated By: Cj Gunter MD Electronically Authenticated By: Cj Gunter MD Signed Date/Time: 07/03/19 1620 DD/ 1613 TD/TT: - Medical Decision Making Patient is a 29-year-old female presents emergency room with complaints of left lower abdominal pain that began 3 days ago. She denies any nausea, vomiting, diarrhea, urinary symptoms. She states that her boyfriend was having dysuria a few days ago. She denies any vaginal discharge or irritation. She denies any past medical history or allergies to medications. She states her last menstrual cycle was the middle of April. She states that she has an IUD in place and states she believes the expiration date was in May but has not yet had it removed. She states she has been having normal bowel movements. She is a smoker and states that she also uses heroin. She states that she used heroin this morning. She denies any SI or HI. Vitals are stable. On exam patient has left lower quadrant and left suprapubic tenderness to palpation, no guarding, no rebound, no rigidity, no peritoneal signs, normal bowel sounds. Labs with mildly elevated white blood cell count at 11.8, otherwise stable. UA without evidence of UTI. UDS is positive for opiates, cocaine, marijuana. CT abd pelvis with IV contrast: 1. Irregularly-shaped left adnexal cystic structure with thin, enhancing rim may represent a short segment of small bowel, hydrosalpinx or less likely an abscess. Further evaluation with pelvic ultrasound is recommended. Also correlate with history/symptoms of pelvic inflammatory disease. 2. Small volume of free fluid in the pelvis. pelvic US: 1. Enlarged left ovary with a couple of complex cystic/solid lesions measures about 6 cm in greatest dimension. No abnormal pelvic fluid collection is identified. Follow- up ultrasound in 6-12 weeks could be performed to confirm resolution of these lesions. 2. Small volume of free pelvic fluid may be physiologic. Spoke with Dr. Erma Hathaway, ASTRONAUTICAL ENGINEER regarding pt presentation and results who states that if patient's pain is under control she can follow-up in their office on Wednesday (07/05/2019) and she will see the pt. patient given Zofran, Toradol, IV fluids and symptoms improved and her pain improved. G/C sent from patient's urine. Given that patient's significant other was having dysuria will cover patient for STDs. Patient given 500 g of ceftriaxone while in the ED. Patient given prescription for azithromycin, Flagyl, Toradol. Advised patient Please take medication as prescribed. Do not drink alcohol while taking medication. 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 Please have partner tested and treated as well. Please follow-up with Dr. Hathaway at [facility] on 07/05/2019 and take your ultrasound report with you. Return to emergency room for any new or worsening symptoms. please attempt to stop drug use, please follow up with one of the treatment centers provided to you. Discussed all results with patient discussed the importance of follow-up, patient verbalized understanding. Patient was given a list of substance abuse centers in the area and discussed in detail with pt the risks associated with drug use, she states she would like to attend an outpatient rehab facility. - Differential Diagnosis UTI, STD, PID, diverticulitis, TOA, ovarian torsion, colitis, mass, cyst Critical care attestation.: If time is entered above; I have spent that time in minutes in the direct care of this critically ill patient, excluding procedure time. ED Disposition Clinical Impression: Lower abdominal pain, Left ovarian enlargement, Concern about STD in female without diagnosis, Polysubstance abuse Ovarian cyst Qualifiers: Laterality: left Qualified Code(s): N83.202 - Unspecified ovarian cyst, left side Disposition: DC- TO HOME OR SELFCARE Is pt being admited?: No Does the pt Need Aspirin: No Condition: Stable Instructions: Ovarian Cyst (ED), Sexually Transmitted Diseases (ED), Safe Sex (ED) Additional Instructions: Please take medication as prescribed. Do not drink alcohol while taking medication. 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 Please have partner tested and treated as well. Please follow-up with Dr. Hathaway at [facility] on 07/05/2019 and take your ultrasound report with you. Return to emergency room for any new or worsening symptoms. please attempt to stop drug use, please follow up with one of the treatment centers provided to you. Prescriptions: Azithromycin 1,000 mg PO ONCE 1 Days #2 tablet metroNIDAZOLE [Flagyl] 500 mg PO BID 7 Days #14 tab Ketorolac [Toradol] 10 mg PO Q6H PRN #10 tablet PRN Reason: Pain Referrals: [facility] [Provider Group] - 2-3 Days Time of Disposition: 16:53 Print Language: GUYANESE
[2019-07-03] MEDS ORDERED: LIDOCAINE-MPF (1%) 10 MG/1 ML VIAL 5 ML INFILTRATI ONE (16:53)
== END 2019-07-03 17:11 | disposition home or self-care (01) ==
LOC: ED 11:06
DX: N83.202 Unspecified ovarian cyst, left side (principal); F19.10 Other psychoactive substance abuse, uncomplicated; F11.90 Opioid use, unspecified, uncomplicated; Z90.49 Acquired absence of other specified parts of digestive tract; Z79.899 Other long term (current) drug therapy
CPT/HCPCS: 36415; 74177; 76830; 76856; 80053; 80307; 81001; 84703; 85025; 87591; 96372; 96374; 96375; 99284; J0696; J1885; J2405; J7030; Q9967